=== PATIENT | male | born 1965 | race Caucasian/White ===

== ENCOUNTER 2016-09-07 22:12 | Emergency (ER) | payer MEDICAID ==
[~2016-09-07] VITALS: Ht 188 cm; Wt 59.7 kg
[2016-09-07] MEDS ORDERED: LORA1TAB PO (22:43)
[2016-09-07] MEDS ORDERED: SODIUM CHLORIDE 0.9% 1,000ML IVBOLUS ONE (23:00)
[2016-09-07] MEDS ORDERED: SODIUM CHLORIDE FLUSH 10ML SYR IVF ONE (23:00)
[2016-09-07 23:20] LABS: ASPARTATE AMINO TRANSFERASE 160 U/L (15-37); BLOOD UREA NITROGEN 18 mg/dL (7-18)
[2016-09-07 23:26] LABS: DIFF TOTAL CELLS COUNTED 100 CELL DIFF
[2016-09-07 23:31] LABS: VERIFY COUNTS? YES
[2016-09-08] MEDS ORDERED: MICAFUNGIN 100 MG in SODIUM CHLORIDE 0.9% 100 ML IV ONE (02:00)
[2016-09-08] MEDS ORDERED: MICAFUNGIN 100 MG IVPB ONE (02:00)
[2016-09-08 03:38] VITALS: BP 157/99
[2016-09-08] MEDS ORDERED: OMNIPAQUE 350 MG/ML, 100ML BOTTLE ONE (05:05)
== END 2016-09-08 03:41 | disposition home or self-care (01) ==
LOC: ED 23:59
DX: B37.81 Candidal esophagitis (principal); J31.2 Chronic pharyngitis; B37.0 Candidal stomatitis
CPT/HCPCS: 36415; 70491; 71020; 80053; 81001; 83605; 84145; 85025; 87040; 96361; 96365; 99285; J2248; J7030; Q9967